=== PATIENT | female | born 1995 | race Two or more races ===

== ENCOUNTER → 2023-06-30 | Outpatient (CLI) | payer MEDICAID ==
[2023-06-30 16:15] LABS: Basophils # (auto) 0 10 ^3/uL (0-0.2); Basophils % (auto) 0.4 % (0.0-2.0); Eosinophils # (auto) 0.2 10 ^3/uL (0-0.8); Eosinophils % (auto) 1.9 % (0.0-7.0); Hematocrit 41.7 % (36.0-46.0); Hemoglobin 13.9 g/dL (12.2-16.2); Lymphocytes # (auto) 2.7 10 ^3/uL (0.4-5.4); Lymphocytes % (auto) 27.2 % (10.0-50.0); Mean Corpuscular Hemoglobin 29.8 pg (28.0-32.0); Mean Corpuscular Hgb Conc. 33.3 g/dL (32.0-36.0); Mean Corpuscular Volume 89.5 fL (80.0-100.0); Monocytes # (auto) 0.4 10 ^3/uL (0-1.3); Monocytes % (auto) 4.5 % (0.0-12.0); Neutrophils # (auto) 6.5 10 ^3/uL (1.6-8.6); Red Blood Cells 4.66 10^6/uL (4.0-5.20); White Blood Cell 9.9 10^3/uL (4.4-10.8)
[2023-06-30 17:01] LABS: Thyroid Stimulating Hormone 0.9 uIU/mL (0.358-3.74)
[2023-06-30 17:37] LABS: Amphetamine Screen, Urine Neg (NEGATIVE); Barbiturate Scree,Urine Neg (NEGATIVE); Benzodiazephine Screen, Urine Neg (NEGATIVE); Cocaine Screen, Urine Neg (NEGATIVE); Opiate Scree,Urine Neg (NEGATIVE); Phencyclidine Screen, Urine Neg (NEGATIVE)
[2023-06-30 17:38] LABS: Cannabinoid Screen, Urine Neg (NEGATIVE)
[2023-07-01 06:06] LABS: Varicella Zoster IgG Antibody 1726 index (Immune >165)
[2023-07-01 08:06] LABS: RPR Non Reactive (Non Reactive)
[2023-07-01 08:46] LABS: Hepatitis B Surface Antigen Negative (Negative)
[2023-07-01 09:07] LABS: Hepatitis A Ab IgM Negative
[2023-07-01 22:06] LABS: Chlamydia Trachomatis, NAA Negative (Negative); Neisseria gonorrhoeae, NAA Negative (Negative)
== END | disposition home or self-care (01) ==
LOC: LAB 15:25
PROVIDERS: ATTEND Obstetrics & Gynecology
DX: Z34.80 Encounter for supervision of other normal pregnancy, unspecified trimester (principal); Z31.430 Encounter of female for testing for genetic disease carrier status for procreative management; Z36.0 Encounter for antenatal screening for chromosomal anomalies; N39.0 Urinary tract infection, site not specified; Z3A.00 Weeks of gestation of pregnancy not specified
CPT/HCPCS: 36415; 80307; 83036; 84439; 84443; 84702; 85025; 86592; 86703; 86709; 86762; 86787; 86850; 86900; 86901; 87086; 87340

== ENCOUNTER → 2023-09-21 | Outpatient (CLI) | payer MEDICAID ==
[2023-09-21 07:51] LABS: Basophils # (auto) 0 10 ^3/uL (0-0.2); Basophils % (auto) 0.4 % (0.0-2.0); Eosinophils # (auto) 0.2 10 ^3/uL (0-0.8); Eosinophils % (auto) 1.7 % (0.0-7.0); Hematocrit 39.5 % (36.0-46.0); Hemoglobin 13.2 g/dL (12.2-16.2); Lymphocytes # (auto) 3.4 10 ^3/uL (0.4-5.4); Lymphocytes % (auto) 30.1 % (10.0-50.0); Mean Corpuscular Hemoglobin 30.4 pg (28.0-32.0); Mean Corpuscular Hgb Conc. 33.3 g/dL (32.0-36.0); Mean Corpuscular Volume 91.2 fL (80.0-100.0); Monocytes # (auto) 0.5 10 ^3/uL (0-1.3); Monocytes % (auto) 4.5 % (0.0-12.0); Neutrophils # (auto) 7.1 10 ^3/uL (1.6-8.6); Neutrophils % (auto) 63.3 % (37.0-80.0); Red Blood Cells 4.33 10^6/uL (4.0-5.20); Red Cell Distribution Width 14.1 % (11.8-14.3); White Blood Cell 11.2 10^3/uL (4.4-10.8)
[2023-09-21 08:18] LABS: Alanine Aminotransferase 21 U/L (7-40); Albumin 3.9 g/dL (3.2-4.8); Alkaline Phosphatase 140 U/L (46-116); Anion Gap 7 (5-15); Aspartate Aminotransferase 18 U/L (13-40); Bilirubin, Total 0.3 mg/dL (0.2-1.0); Carbon Dioxide 25 mmol/L (20-30); Chloride 107 mmol/L (98-107); Glucose 90 mg/dL (74-106); Potassium 3.6 mmol/L (3.5-5.1); Sodium 139 mmol/L (136-145); Total Protein 6.3 g/dL (5.7-8.2)
[2023-09-21 08:24] LABS: BUN/Creatinine Ratio 10.4 (10.0-20.0); Blood Urea Nitrogen < 5 mg/dL (9-23)
[2023-09-21 15:05] LABS: Amphetamine Screen, Urine Neg (NEGATIVE); Barbiturate Scree,Urine Neg (NEGATIVE); Benzodiazephine Screen, Urine Neg (NEGATIVE); Cannabinoid Screen, Urine Neg (NEGATIVE); Cocaine Screen, Urine Neg (NEGATIVE); Opiate Scree,Urine Neg (NEGATIVE); Phencyclidine Screen, Urine Neg (NEGATIVE)
[2023-09-21 15:05] LABS: Triglycerides 102 mg/dL (< 150)
[2023-09-21 15:06] LABS: LDL Cholesterol 155 mg/dL (< 100)
[2023-09-21 15:07] LABS: Cholesterol 193 mg/dL (< 200); HDL Cholesterol 38 mg/dL (40-59)
[2023-09-21 15:11] LABS: Thyroid Stimulating Hormone 2.11 uIU/mL (0.358-3.74)
[2023-09-21 15:19] LABS: Beta HCG, Quantitative 25001.4 mIU/mL (1.5-4.2)
[2023-09-22 06:06] LABS: RPR Non Reactive (Non Reactive)
[2023-09-22 07:06] LABS: RPR Non Reactive (Non Reactive)
[2023-09-23 00:06] LABS: Chlamydia Trachomatis, NAA Negative (Negative); Neisseria gonorrhoeae, NAA Negative (Negative)
[2023-09-23 04:06] LABS: Varicella Zoster IgG Antibody 2068 index (Immune >165)
== END | disposition home or self-care (01) ==
LOC: LAB 07:34
PROVIDERS: ATTEND Obstetrics & Gynecology
DX: Z34.80 Encounter for supervision of other normal pregnancy, unspecified trimester (principal); Z3A.00 Weeks of gestation of pregnancy not specified
CPT/HCPCS: 36415; 80053; 80061; 80307; 82951; 83036; 84439; 84443; 84702; 85025; 86592; 86703; 86762; 86787; 86850; 86900; 86901; 87086; 87340

== ENCOUNTER 2023-11-20 11:05 | Observation (INO) | payer MEDICAID ==
[2023-11-20] MEDS ORDERED: PREN-96 PO (12:41)
== END 2023-11-20 12:47 | disposition home or self-care (01) ==
LOC: LDRP 11:05
PROVIDERS: ADMIT Obstetrics & Gynecology; ATTEND Obstetrics & Gynecology
DX: O41.03X0 Oligohydramnios, third trimester, not applicable or unspecified (principal); Z3A.36 36 weeks gestation of pregnancy
CPT/HCPCS: 59025; 76818; 81002; 94760; G0378

== ENCOUNTER 2023-11-23 10:22 | Observation (INO) | payer MEDICAID ==
[~2023-11-23 10:22] MED LIST: PREN-96 PO
== END 2023-11-23 17:14 | disposition home or self-care (01) ==
LOC: UNDOADMOB 15:44 → LDRP 15:44
PROVIDERS: ADMIT Obstetrics & Gynecology; ATTEND Obstetrics & Gynecology
DX: Z36.89 Encounter for other specified antenatal screening (principal); Z3A.37 37 weeks gestation of pregnancy; Z79.899 Other long term (current) drug therapy
CPT/HCPCS: 59025; 76818; 81002; 82948; G0378

== ENCOUNTER 2023-11-30 23:05 | Inpatient (IN) | payer MEDICAID ==
[~2023-11-30] VITALS: Ht 149.9 cm; Wt 86.2 kg
[2023-12-01] MEDS ORDERED: BUTORPHANOL TARTRATE 2 MG/1 ML VIAL IV PRN ×2 (01:00)
[2023-12-01] MEDS ORDERED: miSOPROStol 100 mcg TAB SL PRN (01:00)
[2023-12-01] MEDS: LACT. RINGERS/OXYTOCIN 20UNITS 1,000 ML IV ONE (01:00)
[2023-12-01] MEDS ORDERED: METHYLERGONOVINE MALEATE 0.2 MG/ML AMP IM PRN (01:00)
[2023-12-01] MEDS ORDERED: PENICILLIN G POT 5MIL/D5 50ML 50 ML IV ONE (01:00)
[2023-12-01] MEDS ORDERED: miSOPROStol 100 mcg TAB PR PRN (01:00)
[2023-12-01] MEDS ORDERED: LIDOCAINE 2%HCL (LOCAL ANESTH.) INJ 20ML MDV IJ PRN (01:00)
[2023-12-01 01:23] LABS: Basophils # (auto) 0 10 ^3/uL (0-0.2); Basophils % (auto) 0.4 % (0.0-2.0); Eosinophils # (auto) 0 10 ^3/uL (0-0.8); Eosinophils % (auto) 0.3 % (0.0-7.0); Hematocrit 42.6 % (36.0-46.0); Hemoglobin 14.2 g/dL (12.2-16.2); Lymphocytes # (auto) 3.3 10 ^3/uL (0.4-5.4); Lymphocytes % (auto) 25.2 % (10.0-50.0); Mean Corpuscular Hgb Conc. 33.3 g/dL (32.0-36.0); Mean Corpuscular Volume 90.3 fL (80.0-100.0); Monocytes # (auto) 0.6 10 ^3/uL (0-1.3); Monocytes % (auto) 4.5 % (0.0-12.0); Neutrophils # (auto) 9.1 10 ^3/uL (1.6-8.6); Neutrophils % (auto) 69.6 % (37.0-80.0); Red Blood Cells 4.72 10^6/uL (4.0-5.20); Red Cell Distribution Width 14.1 % (11.8-14.3); White Blood Cell 13.1 10^3/uL (4.4-10.8)
[2023-12-01 01:30] LABS: Alanine Aminotransferase 15 U/L (7-40); Albumin 3.8 g/dL (3.2-4.8); Alkaline Phosphatase 200 U/L (46-116); Anion Gap 11 (5-15); Aspartate Aminotransferase 17 U/L (13-40); BUN/Creatinine Ratio 8.8 (10.0-20.0); Blood Urea Nitrogen 5 mg/dL (9-23); Calcium 9.5 mg/dL (8.7-10.4); Carbon Dioxide 18 mmol/L (20-30); Chloride 108 mmol/L (98-107); Glucose 101 mg/dL (74-106); Potassium 3.7 mmol/L (3.5-5.1); Sodium 137 mmol/L (136-145)
[2023-12-01 01:31] LABS: Bilirubin, Total 0.4 mg/dL (0.2-1.0); Total Protein 6.8 g/dL (5.7-8.2)
[2023-12-01 01:39] LABS: INR 0.96 (0.9-1.15); Partial Thromboplastin Time 24.5 SEC (24.5-34.5); Prothrombin Time 10.2 sec (9.3-11.8)
[2023-12-01] MEDS: LACT. RINGERS/OXYTOCIN 20UNITS 500 ML IV ONE ×2 (02:10→02:19)
[2023-12-01] MEDS: KETOROLAC TROMETH 30 MG/ML 1ML VIAL ONE (02:11)
[2023-12-01] MEDS: PHISODERM TOP SOLN 240ML BTL TOP PRN (02:12)
[2023-12-01] MEDS: WITCH HAZEL-GLYCERIN PAD TOP PRN (02:12)
[2023-12-01] MEDS: DERMOPLAST 60ML BOTTLE TOP PRN (02:12)
[2023-12-01] MEDS: LACTATED RINGER'S 1,000 ML IV SCH (02:14)
[2023-12-01] MEDS ORDERED: PENICILLIN G POTASSIUM 2,500,000 UNITS in D5W 5% 50 ML IV SCH (05:00)
[2023-12-01 07:00] VITALS: BP 111/53; PULSE 98; RESP 17; TEMP 97.6; O2SAT 98
[2023-12-01 07:01] LABS: Basophils # (auto) 0 10 ^3/uL (0-0.2); Basophils % (auto) 0.3 % (0.0-2.0); Eosinophils # (auto) 0 10 ^3/uL (0-0.8); Eosinophils % (auto) 0.1 % (0.0-7.0); Hematocrit 39.4 % (36.0-46.0); Lymphocytes # (auto) 2.5 10 ^3/uL (0.4-5.4); Lymphocytes % (auto) 15.2 % (10.0-50.0); Mean Corpuscular Hemoglobin 29.7 pg (28.0-32.0); Mean Corpuscular Hgb Conc. 32.8 g/dL (32.0-36.0); Mean Corpuscular Volume 90.4 fL (80.0-100.0); Monocytes # (auto) 0.7 10 ^3/uL (0-1.3); Monocytes % (auto) 4.5 % (0.0-12.0); Neutrophils # (auto) 13.1 10 ^3/uL (1.6-8.6); Neutrophils % (auto) 79.9 % (37.0-80.0); Nucleated Red Blood Cells % 0.2 %; Red Blood Cells 4.36 10^6/uL (4.0-5.20); White Blood Cell 16.4 10^3/uL (4.4-10.8)
[2023-12-01] MEDS ORDERED: ONDANSETRON ODT 4 MG TAB PO PRN (07:30)
[2023-12-01] MEDS: ACETAMINOPHEN 325 MG TAB PO PRN (07:46)
[2023-12-01 11:00] VITALS: BP 104/78; PULSE 97; RESP 16; TEMP 98; O2SAT 97
[2023-12-01 15:00] VITALS: BP 114/56; PULSE 84; RESP 16; TEMP 98.7; O2SAT 97
[2023-12-01 19:00] VITALS: BP 115/54; PULSE 94; RESP 20; TEMP 99; O2SAT 97
[2023-12-01] MEDS: IBUPROFEN 600 MG TAB PO PRN (19:30)
[2023-12-01] MEDS ORDERED: DOCU-94 PO (22:16)
[2023-12-01] MEDS ORDERED: IBU600T PO (22:16)
[2023-12-01 23:00] VITALS: BP 104/64; PULSE 85; RESP 18; TEMP 98; O2SAT 95
[2023-12-02 02:48] VITALS: BP 119/65; PULSE 103; RESP 16; TEMP 98.3; O2SAT 95
[2023-12-02 07:00] VITALS: BP 114/59; PULSE 92; RESP 16; TEMP 98.7; O2SAT 96
[2023-12-02 07:06] LABS: RPR Non Reactive (Non Reactive)
[2023-12-03 19:06] LABS: Treponema pallidum Ab (FTA-Ab) Non Reactive (Non Reactive)
== END 2023-12-02 10:27 | disposition home or self-care (01) | DRG 560 ==
LOC: LDRP 23:05 → OBSVTOIN 12-01 00:45 → LDRP 12-01 00:46
PROVIDERS: ADMIT Obstetrics & Gynecology; ATTEND Obstetrics & Gynecology
PROC: 10E0XZZ Delivery of Products of Conception, External Approach (ICD-10-PCS; principal; 2023-12-01)
DX: O80 Encounter for full-term uncomplicated delivery (principal); Z37.0 Single live birth; Z3A.38 38 weeks gestation of pregnancy
CPT/HCPCS: 36415; 59025; 59409; 80053; 81002; 85025; 85610; 85730; 86592; 86703; 86850; 86900; 86901; 94760; 96360; 96361; 96365; 96366; G0378; J1885; J2590; J7060